=== PATIENT | male | born 1975 | race Hispanic/Latino ===

== ENCOUNTER → 2019-07-01 | Outpatient (CLI) | payer BC | LOC: WCC 14:28 | PROVIDERS: ATTEND Family Medicine | DX: S31.109A Unspecified open wound of abdominal wall, unspecified quadrant without penetration into peritoneal cavity, initial encounter (principal); K68.11 Postprocedural retroperitoneal abscess; I10 Essential (primary) hypertension; B20 Human immunodeficiency virus [HIV] disease; E03.9 Hypothyroidism, unspecified; E78.00 Pure hypercholesterolemia, unspecified; F10.229 Alcohol dependence with intoxication, unspecified; F17.210 Nicotine dependence, cigarettes, uncomplicated; W33.01XA Accidental discharge of shotgun, initial encounter ==

== ENCOUNTER → 2019-07-15 | Outpatient (CLI) | payer BC | LOC: WCC 11:28 | PROVIDERS: ATTEND Family Medicine | DX: S31.109A Unspecified open wound of abdominal wall, unspecified quadrant without penetration into peritoneal cavity, initial encounter (principal); I10 Essential (primary) hypertension; I69.998 Other sequelae following unspecified cerebrovascular disease; B20 Human immunodeficiency virus [HIV] disease; E03.9 Hypothyroidism, unspecified; E78.00 Pure hypercholesterolemia, unspecified; F10.229 Alcohol dependence with intoxication, unspecified; K68.11 Postprocedural retroperitoneal abscess; F17.210 Nicotine dependence, cigarettes, uncomplicated; W33.01XA Accidental discharge of shotgun, initial encounter ==

== ENCOUNTER → 2019-07-22 | Outpatient (CLI) | payer BC | LOC: WCC 14:04 | PROVIDERS: ATTEND Family Medicine | DX: S31.109A Unspecified open wound of abdominal wall, unspecified quadrant without penetration into peritoneal cavity, initial encounter (principal); B20 Human immunodeficiency virus [HIV] disease; E03.9 Hypothyroidism, unspecified; E78.00 Pure hypercholesterolemia, unspecified; F10.229 Alcohol dependence with intoxication, unspecified; I10 Essential (primary) hypertension; K68.11 Postprocedural retroperitoneal abscess; I69.998 Other sequelae following unspecified cerebrovascular disease; W33.01XA Accidental discharge of shotgun, initial encounter; F17.210 Nicotine dependence, cigarettes, uncomplicated ==

== ENCOUNTER → 2019-07-29 | Outpatient (CLI) | payer BC, OTHER | LOC: WCC 10:41 | PROVIDERS: ATTEND Family Medicine | DX: S31.109A Unspecified open wound of abdominal wall, unspecified quadrant without penetration into peritoneal cavity, initial encounter (principal); B20 Human immunodeficiency virus [HIV] disease; E03.9 Hypothyroidism, unspecified; E78.00 Pure hypercholesterolemia, unspecified; I10 Essential (primary) hypertension; I69.998 Other sequelae following unspecified cerebrovascular disease; K68.11 Postprocedural retroperitoneal abscess; W33.01XA Accidental discharge of shotgun, initial encounter; F10.229 Alcohol dependence with intoxication, unspecified; F17.210 Nicotine dependence, cigarettes, uncomplicated | CPT/HCPCS: 15271; Q4121 ==

== ENCOUNTER → 2019-08-05 | Outpatient (CLI) | payer BC, OTHER | LOC: WCC 12:03 | PROVIDERS: ATTEND Family Medicine | DX: S31.109A Unspecified open wound of abdominal wall, unspecified quadrant without penetration into peritoneal cavity, initial encounter (principal); K68.11 Postprocedural retroperitoneal abscess; B20 Human immunodeficiency virus [HIV] disease; E03.9 Hypothyroidism, unspecified; E78.00 Pure hypercholesterolemia, unspecified; F10.229 Alcohol dependence with intoxication, unspecified; I10 Essential (primary) hypertension; I69.998 Other sequelae following unspecified cerebrovascular disease; W33.01XA Accidental discharge of shotgun, initial encounter; F17.210 Nicotine dependence, cigarettes, uncomplicated ==

== ENCOUNTER → 2019-08-12 | Outpatient (CLI) | payer BC, OTHER | LOC: WCC 11:02 | PROVIDERS: ATTEND Family Medicine | DX: S31.109A Unspecified open wound of abdominal wall, unspecified quadrant without penetration into peritoneal cavity, initial encounter (principal); K68.11 Postprocedural retroperitoneal abscess; I10 Essential (primary) hypertension; B20 Human immunodeficiency virus [HIV] disease; E03.9 Hypothyroidism, unspecified; E78.00 Pure hypercholesterolemia, unspecified; F10.229 Alcohol dependence with intoxication, unspecified; I69.998 Other sequelae following unspecified cerebrovascular disease; W33.01XA Accidental discharge of shotgun, initial encounter; F17.210 Nicotine dependence, cigarettes, uncomplicated | CPT/HCPCS: 15271; Q4121 ==

== ENCOUNTER → 2019-09-02 | Outpatient (CLI) | payer BC, OTHER | LOC: WCC 10:11 | PROVIDERS: ATTEND Family Medicine | DX: S31.109A Unspecified open wound of abdominal wall, unspecified quadrant without penetration into peritoneal cavity, initial encounter (principal); K68.11 Postprocedural retroperitoneal abscess; B20 Human immunodeficiency virus [HIV] disease; E03.9 Hypothyroidism, unspecified; E78.00 Pure hypercholesterolemia, unspecified; I69.998 Other sequelae following unspecified cerebrovascular disease; I10 Essential (primary) hypertension; W33.01XA Accidental discharge of shotgun, initial encounter; F10.229 Alcohol dependence with intoxication, unspecified; F17.210 Nicotine dependence, cigarettes, uncomplicated ==

== ENCOUNTER → 2019-09-10 | Outpatient (CLI) | payer BC, OTHER | LOC: WCC 03:00 | PROVIDERS: ATTEND Family Medicine | DX: S31.109A Unspecified open wound of abdominal wall, unspecified quadrant without penetration into peritoneal cavity, initial encounter (principal); K68.11 Postprocedural retroperitoneal abscess; I10 Essential (primary) hypertension; B20 Human immunodeficiency virus [HIV] disease; E03.9 Hypothyroidism, unspecified; E78.00 Pure hypercholesterolemia, unspecified; F10.229 Alcohol dependence with intoxication, unspecified; I69.998 Other sequelae following unspecified cerebrovascular disease; W33.01XA Accidental discharge of shotgun, initial encounter; F17.210 Nicotine dependence, cigarettes, uncomplicated ==

== ENCOUNTER → 2019-09-16 | Outpatient (CLI) | payer BC, OTHER | LOC: WCC 11:05 | PROVIDERS: ATTEND Family Medicine | DX: S31.109A Unspecified open wound of abdominal wall, unspecified quadrant without penetration into peritoneal cavity, initial encounter (principal); K68.11 Postprocedural retroperitoneal abscess; B20 Human immunodeficiency virus [HIV] disease; E03.9 Hypothyroidism, unspecified; E78.00 Pure hypercholesterolemia, unspecified; I10 Essential (primary) hypertension; I69.998 Other sequelae following unspecified cerebrovascular disease; W33.01XA Accidental discharge of shotgun, initial encounter; F10.229 Alcohol dependence with intoxication, unspecified; F17.210 Nicotine dependence, cigarettes, uncomplicated ==

== ENCOUNTER → 2019-09-30 | Outpatient (CLI) | payer BC, OTHER | LOC: WCC 11:51 | PROVIDERS: ATTEND Family Medicine | DX: S31.109A Unspecified open wound of abdominal wall, unspecified quadrant without penetration into peritoneal cavity, initial encounter (principal); K68.11 Postprocedural retroperitoneal abscess; B20 Human immunodeficiency virus [HIV] disease; E03.9 Hypothyroidism, unspecified; E78.00 Pure hypercholesterolemia, unspecified; I10 Essential (primary) hypertension; I69.998 Other sequelae following unspecified cerebrovascular disease; W33.01XA Accidental discharge of shotgun, initial encounter; F10.229 Alcohol dependence with intoxication, unspecified; F17.210 Nicotine dependence, cigarettes, uncomplicated ==

== ENCOUNTER → 2019-11-04 | Outpatient (CLI) | payer BC, OTHER ==
[~2019-11-04] MED LIST: MUPIROCIN 2% OINT 22 GM TUBE ONE
== END ==
LOC: WCC 13:52
PROVIDERS: ATTEND Family Medicine
DX: S31.109A Unspecified open wound of abdominal wall, unspecified quadrant without penetration into peritoneal cavity, initial encounter (principal); K68.11 Postprocedural retroperitoneal abscess; B20 Human immunodeficiency virus [HIV] disease; I10 Essential (primary) hypertension; I69.998 Other sequelae following unspecified cerebrovascular disease; E03.9 Hypothyroidism, unspecified; E78.00 Pure hypercholesterolemia, unspecified; F10.229 Alcohol dependence with intoxication, unspecified; W33.01XA Accidental discharge of shotgun, initial encounter; F17.210 Nicotine dependence, cigarettes, uncomplicated

== ENCOUNTER → 2020-01-20 | Outpatient (CLI) | payer BC, OTHER | LOC: WCC 11:54 | PROVIDERS: ATTEND Family Medicine | DX: S31.609A Unspecified open wound of abdominal wall, unspecified quadrant with penetration into peritoneal cavity, initial encounter (principal); S31.109A Unspecified open wound of abdominal wall, unspecified quadrant without penetration into peritoneal cavity, initial encounter; K68.11 Postprocedural retroperitoneal abscess; I10 Essential (primary) hypertension; I69.998 Other sequelae following unspecified cerebrovascular disease; B20 Human immunodeficiency virus [HIV] disease; E03.9 Hypothyroidism, unspecified; E78.00 Pure hypercholesterolemia, unspecified; F10.229 Alcohol dependence with intoxication, unspecified; W33.01XA Accidental discharge of shotgun, initial encounter; F17.210 Nicotine dependence, cigarettes, uncomplicated ==

== ENCOUNTER → 2020-01-27 | Outpatient (CLI) | payer BC, OTHER | LOC: WCC 10:37 | PROVIDERS: ATTEND Family Medicine | DX: S31.609A Unspecified open wound of abdominal wall, unspecified quadrant with penetration into peritoneal cavity, initial encounter (principal); K68.11 Postprocedural retroperitoneal abscess; I10 Essential (primary) hypertension; I69.998 Other sequelae following unspecified cerebrovascular disease; B20 Human immunodeficiency virus [HIV] disease; E03.9 Hypothyroidism, unspecified; E78.00 Pure hypercholesterolemia, unspecified; W33.01XA Accidental discharge of shotgun, initial encounter; F10.229 Alcohol dependence with intoxication, unspecified; F17.210 Nicotine dependence, cigarettes, uncomplicated ==

== ENCOUNTER → 2020-02-03 | Outpatient (CLI) | payer BC, OTHER | LOC: WCC 10:38 | PROVIDERS: ATTEND Family Medicine | DX: S31.609A Unspecified open wound of abdominal wall, unspecified quadrant with penetration into peritoneal cavity, initial encounter (principal); K68.11 Postprocedural retroperitoneal abscess; I10 Essential (primary) hypertension; B20 Human immunodeficiency virus [HIV] disease; E03.9 Hypothyroidism, unspecified; E78.00 Pure hypercholesterolemia, unspecified; I69.998 Other sequelae following unspecified cerebrovascular disease; W33.01XA Accidental discharge of shotgun, initial encounter; F10.229 Alcohol dependence with intoxication, unspecified; F17.210 Nicotine dependence, cigarettes, uncomplicated ==

== ENCOUNTER → 2020-02-10 | Outpatient (CLI) | payer BC, OTHER | LOC: WCC 14:40 | PROVIDERS: ATTEND Family Medicine | DX: S31.609A Unspecified open wound of abdominal wall, unspecified quadrant with penetration into peritoneal cavity, initial encounter (principal); K68.11 Postprocedural retroperitoneal abscess; I10 Essential (primary) hypertension; I69.998 Other sequelae following unspecified cerebrovascular disease; B20 Human immunodeficiency virus [HIV] disease; E03.9 Hypothyroidism, unspecified; E78.00 Pure hypercholesterolemia, unspecified; W33.01XA Accidental discharge of shotgun, initial encounter; F10.229 Alcohol dependence with intoxication, unspecified; F17.210 Nicotine dependence, cigarettes, uncomplicated | CPT/HCPCS: 15271; Q4121 ==